=== PATIENT | male | born 1970 | race Caucasian/White ===

== ENCOUNTER 2024-08-20 08:45 | Emergency (ER) | payer OTHER, SELFPAY ==
[2024-08-20 08:54] VITALS: BP 119/82
--- NOTE | 2024-08-20 09:18 | ED.GENMED ---
History of Present Illness
General
Chief Complaint: Back Pain
Time Seen by Provider: 08/20/24 09:04
History of Present Illness
History of Present Illness:
Patient is a 54-year-old male with history of prior kidney stones presenting to the emergency department back pain. Patient states that 2 weeks ago he developed left lower back pain that radiates down his leg. It was intermittent but worsened
after he did strenuous exercise. He went to his chiropractor a few days ago and the symptoms resolved. He states that 2 days ago he had no symptoms. Yesterday he developed some vague back pain and leg pain. He states that the pain is more severe
and is now mostly in his left leg/groin. No numbness tingling. No saddle anesthesia. No urinary incontinence or retention. He states that this pain is very similar to when he had his last kidney stone. He has never required lithotripsy or any
intervention. Normal urinary output. No hematuria. No abdominal pain nausea or vomiting. Of note he also states that he knows that he needs a left hip replacement.
Past History
Past History
ED Past Medical History: None
ED Past Surgical History: None
Social History
Tobacco: Smoker
Alcohol: None
Phy Exam
Physical Exam
Physical Exam:
GENERAL: in no acute distress
HEENT: normocephalic, extraocular movements intact, moist oral mucosa
NECK: normal inspection
Back: No midline spinal tenderness, left lower lateral lumbar tenderness to palpation, no rash
RESPIRATORY: no respiratory distress, clear to auscultation bilaterally
CARDIOVASCULAR: regular rate and rhythm
ABDOMEN/: soft, non-distended, non-tender to palpation, no rebound or guarding
EXTREMITIES: non-tender, no edema/swelling
NEUROLOGIC: awake and alert, moves all extremities, pain with flexion of the left hip, no rash or swelling or skin changes,
SKIN: warm
Course
Orders/Labs/Results
Orders:
Orders
08/20/24 09:18
CT Abd/pel Without Iv Or Oral Urgent
Comment:
Reason For Exam: left flank pain
Ketorolac [Toradol] 15 mg IM NOW STA
08/20/24 09:45
UA Reflex to Culture [Urinalysis Reflex To Culture] Urgent
Date Specimen was Collected: 08/20/24
Time Specimen was Collected: 09:10
08/20/24 11:41
Prednisone [Deltasone] 50 mg PO NOW STA
Vital Signs
Initial and Last Documented VS:
Initial Vital Signs
Pulse Resp BP Pulse Ox
67 16 119/82 97
08/20/24 08:54 08/20/24 08:54 08/20/24 08:54 08/20/24 08:54
Last Documented Vital Signs
Temp Pulse Resp BP Pulse Ox
97.7 F 63 16 134/91 98
08/20/24 09:01 08/20/24 10:38 08/20/24 10:38 08/20/24 10:38 08/20/24 10:38
MDM/Problems Addressed
Differential Diagnosis Includes:
Patient is a 54-year-old man presenting to the emergency department with back pain and leg pain for the past few days. Vitals unremarkable exam does show reproducible tenderness to the left lower back as well as pain with flexion of the left hip.
Back pain certainly is musculoskeletal which is consistent with patient's story. could also be secondary to his osteoarthritis the other vague back pain leg pain certainly could be secondary to kidney stone or urinary infection. No obvious swelling
or skin changes to suggest septic arthritis or cellulitis or DVT. He does not have any red flag signs to suggest cauda equina or cord compression. Will check urinalysis and obtain CT scan. Will give Toradol.
*Critical Care Note
Total Time (30-74mins, 75-104mins- exclusive of procedures): Not Applicable
Update Note
Update Note:
Urinalysis negative for any infection or blood. CT scan per my interpretation with no kidney stone. Per the official read he does have small nonobstructing left intrarenal stone. He also has discharge under the disease as well as osteoarthritis.
Given the pain worsens with movement and does for certain dermatome certainly could be neuropathic. After shared decision making we will treat with steroid taper. Patient advised to follow-up with orthopedic doctor for hip replacement as well.
Strict return precautions given. Will discharge at this time.
ED Attending Note
-
Portions of this chart may have been created with voice recognition software.� Occasional wrong word or��sound alike� substitutions may have occurred due to the inherent limitations of voice recognition software.
Discharge Plan
Departure
Patient Disposition: Home (Routine Discharge)
Date of Disposition: 08/20/24
Time of Disposition: 11:40
Patient with high blood pressure during this ER visit?: No
Discharge Problem:
Leg pain
Prescriptions:
New
prednisone 10 mg tablets,dose pack
10 mg PO DIRECTED Qty: 21 0RF
No Action
ibuprofen 600 MG tablet
600 mg PO Q6HPRN PRN (Reason: pain)
prednisone 10 MG tablet
10 mg PO DAILY 11 Days 0RF
Rx Instructions:
take 50mg x 5 days, then 20mg x3 days, then 10mg x 3 days
tramadol 50 MG tablet
50 - 100 mg PO Q6HPRN PRN (Reason: pain) Qty: 15 0RF
Referrals:
Antonino Copeland, DO [Family Provider] -
Interventions
Interventions:
*Risk Screen - Suicide Last Done: 08/20/24 10:32
*General Assessment Last Done: 08/20/24 10:32
*Neglect/Abuse Screening Last Done: 08/20/24 10:32
*ED- Fall Risk Assessment Last Done: 08/20/24 10:32
*ED COVID-19 Vaccine History Last Done: 08/20/24 10:32
ED-Musculoskeletal Assessment Last Done: 08/20/24 09:53
Discharge Date and Time
Print Language: [place]IZ[place]
[2024-08-20] MEDS: TORADOL 15 MG IM (09:47)
[2024-08-20 09:54] LABS: Urine Albumin Negative (Neg - Trace); Urine Bilirubin Negative (Negative); Urine Character Clear (Clear); Urine Color Yellow; Urine Glucose Negative (Negative); Urine Ketone Negative (Negative); Urine Leukocyte Negative (Negative); Urine Nitrite Negative (Negative); Urine Occult Blood Negative (Negative); Urine Specific Gravity 1.025 (<1.030); Urine Urobilinogen Negative (Neg - 1+)
[2024-08-20 10:38] VITALS: BP 134/91
[2024-08-20] MEDS: DELTASONE 50 MG PO (12:10)
[2024-08-20 12:24] VITALS: BP 132/72
== END 2024-08-20 12:29 | disposition home or self-care (01) ==
LOC: EMR 08:45
PROVIDERS: EMERGENCY PHYSICIAN Student in an Organized Health Care Education/Training Program; FAMILY PHYSICIAN Family Medicine
DX: M79.605 Pain in left leg (principal); R10.32 Left lower quadrant pain; F17.200 Nicotine dependence, unspecified, uncomplicated; M16.12 Unilateral primary osteoarthritis, left hip; N20.0 Calculus of kidney
CPT/HCPCS: 99284; 96372; 74176; 81003